=== PATIENT | female | born 1960 | race Caucasian/White ===

== ENCOUNTER 2016-07-15 17:55 | Emergency (ER) | payer BC, OTHER ==
[~2016-07-15] VITALS: Ht 175.3 cm; Wt 76.0 kg
[~2016-07-15 17:55] MED LIST: ERGO50000 PO; MORP30SU PO; OXYC1SOL5 PO; RIVA10 PO; Z.0.COMMODE-3:1; Z.0.WALKERFRONT
[2016-07-15 17:57] VITALS: BP 195/117; PULSE 89; RESP 18; TEMP 98.9; O2SAT 100
[2016-07-15 18:10] VITALS: O2SAT 100
[2016-07-15] MEDS ORDERED: SODIUM CHLOR 0.9% 1000 ML INJ 1,000 ML IV SCH (18:11)
[2016-07-15] MEDS ORDERED: MORPHINE SULFATE 4 MG/ML INJ IV PUSH ONE (18:15)
[2016-07-15] MEDS ORDERED: ONDANSETRON HCL 4 MG/2 ML VIAL IVP ONE (18:15)
[2016-07-15] MEDS ORDERED: SODIUM CHLORIDE 0.9% FLUSH 5 ML FLUSH IVF PRN (18:15)
[2016-07-15] MEDS ORDERED: FAMOTIDINE 20 MG/2 ML VIAL IV PUSH ONE (18:15)
--- NOTE | 2016-07-15 18:23 | PD ---
HPI Chief Complaint: GI Complaint Time Seen by Provider: 18:03 Travel History International Travel<30 days: Yes Contact w/Intl Traveler<30days: [place] Country Traveled to: [place] Traveled to known affect area: No History of Present Illness HPI Is a 55-year-old woman who presents to the emergency department complaining of severe epigastric abdominal pain with nausea and vomiting. She was feeling well until yesterday when she developed a little bit of neck stiffness and neck pain. She had pain when trying to look to the right. Lastly she generally wasn 't feeling well when to bed early. She was awoken from sleep with severe epigastric abdominal pain with nausea and vomiting. Multiple episodes of nausea and vomiting since then. Abdominal pain is also worsened. She's never had previous similar symptoms. No change in her bowel movements. No urinary changes. No history of abdominal surgeries. She was on chronic pain medicines for a while related to reportedly thoracic outlet syndrome. She's not been taking it is much morphine but she takes ibuprofen daily now. She also drinks pretty regularly he was drinking yesterday. No other complaints. History Past Medical History Narrative Medical History of thoracic outlet syndrome Social History Alcohol Use: Yes (1PPD) Tobacco Use: Yes Allergies-Medications (Allergen,Severity, Reaction): Coded Allergies: Sulfa (Unverified Allergy, Unknown, MOTHER'S CAUTION, 07/15/16) Reported Meds & Prescriptions Reported Meds & Active Scripts Active Lortab (Hydrocodone-Acetaminophen) 5-325 Mg Tab 1-2 Tab PO Q6H PRN Zofran Odt (Ondansetron Odt) 4 Mg Tab 4 Mg SL Q8HR PRN Pepcid (Famotidine) 20 Mg Tab 20 Mg PO BID Reported Ibuprofen 600 Mg Tab 600 Mg PO Q6H PRN Morphine ER (Morphine Sulfate) 15 Mg Tab 15 Mg PO EVERY OTHER DAY Review of Systems Except as stated in HPI: all other systems reviewed are Neg Physical Exam Narrative GENERAL: Well-appearing 55-year-old woman, no acute distress. SKIN: Warm and dry. NECK: Trachea midline. No JVD. Supple. CARDIOVASCULAR: Regular rate and rhythm. No murmur appreciated. RESPIRATORY: No accessory muscle use. Clear to auscultation. Breath sounds equal bilaterally. GASTROINTESTINAL: Abdomen is flat and soft. Moderate epigastric tenderness. Mild left upper quadrant tenderness. No right upper quadrant tenderness. No lower abdominal tenderness. MUSCULOSKELETAL: No obvious deformities. No edema. NEUROLOGICAL: Awake and alert. No obvious cranial nerve deficits. Motor grossly within normal limits. Normal speech. PSYCHIATRIC: Appropriate mood and affect; insight and judgment normal. Data Data Last Documented VS Vital Signs Date Time Temp Pulse Resp B/P Pulse Ox O2 Delivery O2 Flow Rate FiO2 07/15/16 21:26 97 16 97 07/15/16 21:06 109/66 Room Air 07/15/16 17:57 98.9 Orders Complete Blood Count With Diff (07/15/16 18:11) Comprehensive Metabolic Panel (07/15/16 18:11) Lipase (07/15/16 18:11) Urinalysis - C+S If Indicated (07/15/16 18:11) Ct Abd/Pel W Iv Contrast(Rout) (07/15/16 18:11) Iv Access Insert/Monitor (07/15/16 18:11) Ecg Monitoring (07/15/16 18:11) Oximetry (07/15/16 18:11) NPO (07/15/16 18:11) Morphine Inj (Morphine Inj) (07/15/16 18:15) Ondansetron Inj (Zofran Inj) (07/15/16 18:15) Sodium Chlor 0.9% 1000 Ml Inj (Ns 1000 M (07/15/16 18:11) Sodium Chloride 0.9% Flush (Ns Flush) (07/15/16 18:15) Famotidine Inj (Pepcid Inj) (07/15/16 18:15) Morphine Inj (Morphine Inj) (07/15/16 19:15) Al-Mag Hy-Si 40-40-4 Mg/Ml Liq (Mag-Al P (07/15/16 19:15) Lidocaine 2% Viscous (Xylocaine 2% Visco (07/15/16 19:15) Prochlorperazine Inj (Compazine Inj) (07/15/16 19:15) Potassium Chloride (Kcl) (07/15/16 20:00) Iohexol 300 Inj (Rad Ct) (Omnipaque 300 (07/15/16 19:56) Labs Laboratory Tests Test 07/15/16 07/15/16 18:05 20:01 White Blood Count 7.3 TH/MM3 Red Blood Count 4.63 MIL/MM3 Hemoglobin 15.5 GM/DL Hematocrit 44.3 % Mean Corpuscular Volume 95.7 FL Mean Corpuscular Hemoglobin 33.4 PG Mean Corpuscular Hemoglobin 34.9 % Concent Red Cell Distribution Width 12.0 % Platelet Count 218 TH/MM3 Mean Platelet Volume 8.6 FL Neutrophils (%) (Auto) 84.7 % Lymphocytes (%) (Auto) 10.9 % Monocytes (%) (Auto) 3.0 % Eosinophils (%) (Auto) 0.1 % Basophils (%) (Auto) 1.3 % Neutrophils # (Auto) 6.2 TH/MM3 Lymphocytes # (Auto) 0.8 TH/MM3 Monocytes # (Auto) 0.2 TH/MM3 Eosinophils # (Auto) 0.0 TH/MM3 Basophils # (Auto) 0.1 TH/MM3 CBC Comment DIFF FINAL Differential Comment Sodium Level 131 MEQ/L Potassium Level 3.4 MEQ/L Chloride Level 92 MEQ/L Carbon Dioxide Level 23.7 MEQ/L Anion Gap 15 MEQ/L Blood Urea Nitrogen 9 MG/DL Creatinine 0.63 MG/DL Estimat Glomerular Filtration 97 ML/MIN Rate Random Glucose 114 MG/DL Calcium Level 9.5 MG/DL Total Bilirubin 0.7 MG/DL Aspartate Amino Transf 49 U/L (AST/SGOT) Alanine Aminotransferase 55 U/L (ALT/SGPT) Alkaline Phosphatase 133 U/L Total Protein 8.5 GM/DL Albumin 4.0 GM/DL Lipase 142 U/L Urine Color STRAW Urine Turbidity CLEAR Urine pH 6.5 Urine Specific [place] 1.025 Urine Protein TRACE mg/dL Urine Glucose (UA) NEG mg/dL Urine Ketones 40 mg/dL Urine Occult Blood SMALL Urine Nitrite NEG Urine Bilirubin NEG Urine Leukocyte Esterase TRACE Urine RBC 0-3 /hpf Urine WBC 0-2 /hpf Urine Squamous Epithelial 0-5 /hpf Cells Microscopic Urinalysis Comment CULT NOT INDICATED MDM Medical Decision Making Medical Screen Exam Complete: Yes Emergency Medical Condition: Yes Differential Diagnosis Pancreatitis, gastritis, gastroenteritis, obstruction, other Narrative Course Medical decision making: INITIAL: 55 year-old woman, appears ill and uncomfortable, nontoxic. Epigastric pain and vomiting. Probably gastritis. She has some epigastric and left upper quadrant tenderness. Pancreatitis, gastroenteritis are reddish also possible. No diarrhea however. No surgeries to suggest obstruction. She is really not tender in the right upper quadrant to suggest hepatobiliary disease. We'll check labs, medications, CT imaging, reassess. Scripts Hydrocodone-Acetaminophen (Lortab)5-325 Mg Tab1-2 Tab PO Q6H PRN (PAIN SCALE 6 TO 10) #7 TAB Ref 0 Prov:Bennie Carpenter MD 07/15/16 Ondansetron Odt (Zofran Odt)4 Mg Tab4 Mg SL Q8HR PRN (Nausea/Vomiting) #14 TAB Ref 0 Prov:Bennie Carpenter MD 07/15/16 Famotidine (Pepcid)20 Mg Tab20 Mg PO BID #7 TAB Ref 0 Prov:Bennie Carpenter MD 07/15/16 Renato Millan MD Jul 15, 2016 18:23
[2016-07-15 18:31] LABS: AUTOMATED NEUTROPHIL # 6.2 TH/MM3 (1.8-7.7); BASOPHIL # 0.1 TH/MM3 (0-0.2); BASOPHIL % 1.3 % (0.0-2.0); EOSINOPHIL % 0.1 % (0.0-4.0); HEMATOCRIT 44.3 % (35.0-46.0); HEMO FLAGS DIFF FINAL; LYMPH % 10.9 % (9.0-44.0); LYMPHOCYTE # 0.8 TH/MM3 (1.0-4.8); MEAN CELL VOLUME 95.7 FL (80.0-100.0); MEAN CORPUSCULAR HEMOGLOBIN 33.4 PG (27.0-34.0); MEAN CORPUSCULAR HGB CONC 34.9 % (32.0-36.0); NEUT % 84.7 % (16.0-70.0); PLATELET COUNT 218 TH/MM3 (150-450); RED BLOOD COUNT 4.63 MIL/MM3 (4.00-5.30); WHITE BLOOD COUNT 7.3 TH/MM3 (4.0-11.0)
[2016-07-15] MEDS ORDERED: MORP1TAB24 PO (18:37)
[2016-07-15] MEDS ORDERED: IBUP-232 PO (18:37)
[2016-07-15 18:51] LABS: CHLORIDE 92 MEQ/L (98-107); POTASSIUM 3.4 MEQ/L (3.5-5.1); SODIUM (NA) 131 MEQ/L (136-145)
[2016-07-15 18:55] LABS: ANION GAP 15 MEQ/L (5-15); BICARBONATE 23.7 MEQ/L (21.0-32.0); BLOOD UREA NITROGEN 9 MG/DL (7-18)
[2016-07-15 18:58] LABS: ALT (GPT) 55 U/L (10-53); AST (GOT) 49 U/L (15-37); GLOMERULAR FILTRATION RATE 97 ML/MIN (>89)
[2016-07-15 18:59] LABS: TOTAL BILIRUBIN ADULT 0.7 MG/DL (0.2-1.0)
[2016-07-15 19:00] VITALS: BP 185/104; PULSE 98; RESP 18; O2SAT 97
[2016-07-15 19:00] LABS: ALKALINE PHOSPHATASE 133 U/L (45-117)
[2016-07-15] MEDS ORDERED: LIDOCAINE VISCOUS 2% SOLN 15 ML UDC PO ONE (19:15)
[2016-07-15] MEDS ORDERED: PROCHLORPERAZINE INJ 10 MG/2 ML VIAL IVS ONE (19:15)
[2016-07-15] MEDS ORDERED: MORPHINE SULFATE 8 MG/ML INJ IV PUSH ONE (19:15)
[2016-07-15] MEDS ORDERED: ALUMINUM/MAGNESIUM/SIMETH 30 ML CUP PO ONE (19:15)
[2016-07-15] MEDS ORDERED: IOHEXOL 300 MG/ML 100 ML BTL (for Rad CT) IV ONE (19:56)
[2016-07-15] MEDS ORDERED: POTASSIUM CHLORIDE 20 MEQ CONTROLLED RELEASE TAB PO ONE (20:00)
[2016-07-15 20:05] VITALS: BP 129/75; PULSE 97; RESP 18; O2SAT 96
[2016-07-15 20:17] LABS: BLOOD, URINE SMALL (NEG); GLUCOSE,URINE NEG (NEG); KETONE, URINE 40 mg/dL (NEG); NITRITE,URINE NEG (NEG); PH, URINE 6.5 (5.0-8.5)
[2016-07-15 20:33] LABS: URINE COLOR STRAW (YELLW/STRAW)
[2016-07-15] MEDS ORDERED: FAMO1TAB37 PO (20:35)
[2016-07-15] MEDS ORDERED: ZOFR4TAB3 SL (20:35)
[2016-07-15] MEDS ORDERED: HYDR-3533 PO (20:35)
--- NOTE | 2016-07-15 20:36 | PD ---
Data Data Last Documented VS Vital Signs Date Time Temp Pulse Resp B/P Pulse Ox O2 Delivery O2 Flow Rate FiO2 07/15/16 21:06 98 18 109/66 97 Room Air 07/15/16 17:57 98.9 Orders Complete Blood Count With Diff (07/15/16 18:11) Comprehensive Metabolic Panel (07/15/16 18:11) Lipase (07/15/16 18:11) Urinalysis - C+S If Indicated (07/15/16 18:11) Ct Abd/Pel W Iv Contrast(Rout) (07/15/16 18:11) Iv Access Insert/Monitor (07/15/16 18:11) Ecg Monitoring (07/15/16 18:11) Oximetry (07/15/16 18:11) NPO (07/15/16 18:11) Morphine Inj (Morphine Inj) (07/15/16 18:15) Ondansetron Inj (Zofran Inj) (07/15/16 18:15) Sodium Chlor 0.9% 1000 Ml Inj (Ns 1000 M (07/15/16 18:11) Sodium Chloride 0.9% Flush (Ns Flush) (07/15/16 18:15) Famotidine Inj (Pepcid Inj) (07/15/16 18:15) Morphine Inj (Morphine Inj) (07/15/16 19:15) Al-Mag Hy-Si 40-40-4 Mg/Ml Liq (Mag-Al P (07/15/16 19:15) Lidocaine 2% Viscous (Xylocaine 2% Visco (07/15/16 19:15) Prochlorperazine Inj (Compazine Inj) (07/15/16 19:15) Potassium Chloride (Kcl) (07/15/16 20:00) Iohexol 300 Inj (Rad Ct) (Omnipaque 300 (07/15/16 19:56) Labs Laboratory Tests Test 07/15/16 07/15/16 18:05 20:01 White Blood Count 7.3 TH/MM3 Red Blood Count 4.63 MIL/MM3 Hemoglobin 15.5 GM/DL Hematocrit 44.3 % Mean Corpuscular Volume 95.7 FL Mean Corpuscular Hemoglobin 33.4 PG Mean Corpuscular Hemoglobin 34.9 % Concent Red Cell Distribution Width 12.0 % Platelet Count 218 TH/MM3 Mean Platelet Volume 8.6 FL Neutrophils (%) (Auto) 84.7 % Lymphocytes (%) (Auto) 10.9 % Monocytes (%) (Auto) 3.0 % Eosinophils (%) (Auto) 0.1 % Basophils (%) (Auto) 1.3 % Neutrophils # (Auto) 6.2 TH/MM3 Lymphocytes # (Auto) 0.8 TH/MM3 Monocytes # (Auto) 0.2 TH/MM3 Eosinophils # (Auto) 0.0 TH/MM3 Basophils # (Auto) 0.1 TH/MM3 CBC Comment DIFF FINAL Differential Comment Sodium Level 131 MEQ/L Potassium Level 3.4 MEQ/L Chloride Level 92 MEQ/L Carbon Dioxide Level 23.7 MEQ/L Anion Gap 15 MEQ/L Blood Urea Nitrogen 9 MG/DL Creatinine 0.63 MG/DL Estimat Glomerular Filtration 97 ML/MIN Rate Random Glucose 114 MG/DL Calcium Level 9.5 MG/DL Total Bilirubin 0.7 MG/DL Aspartate Amino Transf 49 U/L (AST/SGOT) Alanine Aminotransferase 55 U/L (ALT/SGPT) Alkaline Phosphatase 133 U/L Total Protein 8.5 GM/DL Albumin 4.0 GM/DL Lipase 142 U/L Urine Color STRAW Urine Turbidity CLEAR Urine pH 6.5 Urine Specific [place] 1.025 Urine Protein TRACE mg/dL Urine Glucose (UA) NEG mg/dL Urine Ketones 40 mg/dL Urine Occult Blood SMALL Urine Nitrite NEG Urine Bilirubin NEG Urine Leukocyte Esterase TRACE Urine RBC 0-3 /hpf Urine WBC 0-2 /hpf Urine Squamous Epithelial 0-5 /hpf Cells Microscopic Urinalysis Comment CULT NOT INDICATED MDM Medical Record Reviewed: Yes Supervised Visit with HARINI: No Narrative Course CBC & BMP Diagram 07/15/16 18:05 AST 49 ALT 55 Alk phos 133 Total protein 8.5 Lipase normal UA: UTI unlikely Patient asleep at 9:06 PM easily arousable. Please refer to the outgoing provider's documentation. Her workup today is reassuring aside from quite mild elevation of liver enzymes and mild hematuria. The patient has been taking increased ibuprofen dosages lately having decreased opioid management. EtOH last night also noted. Peptic ulcer disease/gastritis is of some concern. Hematuria is of indeterminate chronicity however it was discussed with the patient necessity of follow-up endorsed. Patient verbalized understanding. Lifestyle and diet modification discussed with patient. Minimization of ibuprofen as tolerable d/w patient. Prescriptions as below. Follow-up with [facility] for endoscopy. Follow-up with PMD for hematuria. BP has improved to about 125/80. The patient is resting comfortably and feels better, is alert and in no distress at 909PM. The patients results and examination findings were discussed. The repeat examination is unremarkable and benign. The history, exam , diagnostic testing, and current condition do not suggest any significant pathology to warrant further testing, continued ED treatment, admission, or surgical evaluation at this point. The vital signs have been stable. The patient does not have uncontrollable pain, intractable vomiting, or other significant symptoms. The patient's condition is stable and appropriate for discharge. The patient will pursue further outpatient evaluation with a primary care physician or other designated or consulting physician as indicated in the discharge instructions. The patient expressed understanding and was agreeable with this plan. Diagnosis Primary Impression: Abdominal pain Qualified Code: R10.13 - Epigastric pain Additional Impressions: Elevated liver function tests Hematuria Hypokalemia Referrals: DR GRAF 2 days Follow up for evaluation of blood in urine. Dalton Mohr MD 2 days Additional Instruction: You have a choice when it comes to health care, and we are glad that you chose [facility] Hopefully, we have met your expectations on today's visit. You are welcome to return to [facility] at any time, as we are committed to meeting the health care needs of our community. Med/Other Pt SpecificInfo: Prescription(s) given Scripts Hydrocodone-Acetaminophen (Lortab)5-325 Mg Tab1-2 Tab PO Q6H PRN (PAIN SCALE 6 TO 10) #7 TAB Ref 0 Prov:Bennie Carpenter MD 07/15/16 Ondansetron Odt (Zofran Odt)4 Mg Tab4 Mg SL Q8HR PRN (Nausea/Vomiting) #14 TAB Ref 0 Prov:Bennie Carpenter MD 07/15/16 Famotidine (Pepcid)20 Mg Tab20 Mg PO BID #7 TAB Ref 0 Prov:Bennie Carpenter MD 07/15/16 Disposition: 01 DISCHARGE HOME Condition: Stable Bennie Carpenter MD Jul 15, 2016 20:36
[2016-07-15 20:42] LABS: COMMENT (UR) CULT NOT INDICATED; CULTURE IF INDICATED CULT NOT INDICATED; RBC, URINE 0-3 /hpf (0-3); SQUAMOUS EPITHELIAL CELL URINE 0-5 /hpf (0-5); WBC, URINE 0-2 /hpf (0-5)
--- NOTE | 2016-07-15 20:44 | RADHPO ---
EXAM DATE/TIME: 07/15/2016 19:51 [place] COMPARISON: No previous studies available for comparison. INDICATIONS : Bilateral epigastric pain. Nausea. Vomiting. IV CONTRAST: 100 cc Omnipaque 300 (iohexol) IV ORAL CONTRAST: No oral contrast ingested. RADIATION DOSE: 15.41 CTDIvol (mGy) MEDICAL HISTORY : Hypertension. Seizures. SURGICAL HISTORY : None. ENCOUNTER: Initial ACUITY: 1 day PAIN SCALE: 7/10 LOCATION: Bilateral upper quadrant TECHNIQUE: Volumetric scanning of the abdomen and pelvis was performed. Using automated exposure control and ad justment of the mA and/or kV according to patient size, radiation dose was kept as low as reasonably achievable to obtain optimal diagnostic quality images. FINDINGS: Lung bases are clear. The liver, spleen, and pancreas are unremarkable. Radiopaque material is seen in the stomach. Adrenals and kidneys are unremarkable. The region of the cecum and terminal ileum a ppear normal. There is a normal appearing appendix. In the pelvis, diverticuli are present in the sigmoid colon without diverticulitis. The bladder is u nremarkable. There is no ascites or adenopathy. Abdominal wall is intact. Total hip is seen on the left. CONCLUSION: Negative for an acute process. Hira Grover MD FACR on July 15, 2016 at 20:31 Board Certified Radiologist. This report was verified electronically.
[2016-07-15 21:06] VITALS: BP 109/66; PULSE 98; RESP 18; O2SAT 97
== END 2016-07-15 21:26 | disposition home or self-care (01) ==
LOC: PHED 17:55
DX: R10.13 Epigastric pain (principal); R79.89 Other specified abnormal findings of blood chemistry; R31.9 Hematuria, unspecified; G54.0 Brachial plexus disorders; E87.6 Hypokalemia; Z72.0 Tobacco use
CPT/HCPCS: 74177; 80053; 81001; 83690; 85025; 96361; 96374; 96375; 96376; 99284; J0780; J2270; J2405; J7030; Q9967

== ENCOUNTER → 2017-05-19 | Day surgery (SDC) | payer OTHER ==
--- NOTE | 2017-05-18 15:59 | TH ---
cc: PEDRO HIGGINBOTHAM M.D. DATE: 05/19/2017 DATE OF : 1960 PROCEDURE TO BE PERFORMED Revision mastopexy and revision lipo abdominoplasty with slim lipo to torso with fat injections. HISTORY OF PRESENT ILLNESS The patient who underwent a lipo abdominoplasty, mastopexy ___ 10/12/2016 and had developed some areas of laxity and lipodystrophy of the torso. The patient wished to go a little smaller on her breasts. We are planning to do the exchange of the current implants for a style 110 volume ___ from 300. PAST MEDICAL HISTORY Past medical history is otherwise unremarkable. She did have eye surgery in 1969, hip replacements in 2014 ___ release. MEDICATION As needed Ibuprofen. ALLERGIES SULFA. SOCIAL HISTORY The patient is an ex-smoker. REVIEW OF SYSTEMS Otherwise unremarkable. PHYSICAL EXAMINATION CONSTITUTIONAL: General appearance. The patient is a well-developed female in no acute distress. Body habitus is within normal limits. There appear to be no deformities. Appears to have attention to grooming. HEENT: Eyes Conjunctivae and lids are within normal anatomical limits. The pupils are reactive to light and accommodation, size, and symmetry. There is no evidence of exudate, hemorrhage, or vessel change. Ears, mouth, nose, and throat The external inspection of the ears and nose fails to demonstrate any pathology, scars, lesions, or masses. Nasal mucosa, septum, and turbinates appear to be well hydrated as well as the lips and gums. No evidence of masses in the hypopharynx or submental area. RESPIRATORY: The patient shows no evidence of intercostal refractions. Otherwise, lungs are clear to auscultation without any abnormal sounds or rubs. CARDIOVASCULAR: The patient has a normal heart rate and rhythm. There is no evidence of noticed carotid bruits. Femoral pulses and pedal pulses in extremities are also within normal limits. GASTROINTESTINAL/ABDOMEN: Soft with no evidence of masses or tenderness. Unable to palpate the liver or spleen. No evidence of hernia. MUSCULOSKELETAL: Appears to be reasonable range of motion on the head, neck, spine, ribs, pelvis, right upper extremity, left upper extremity, right lower extremity, and left lower extremity. The muscle strength and tone appears to be equal and within accepted limits. SKIN: There is no rashes, lesions, or ulcers on the trunk, back, and extremities. NEUROLOGICAL: Examination is grossly normal. PSYCHIATRIC: The patient appears to have good orientation of time, place, and person. Does not appear to have any mood effects of depression, anxiety, or agitation. Does have some areas of laxity, lipodystrophy and ptosis. PLAN As above. MD SIMONE Suresh/FLORIN /2:24 PM /4:03 PM
[~2017-05-19] MED LIST changes: +ACETAMINOPHEN 1000 MG/100 ML 100 ML IV ONE; +ACETAMINOPHEN/HYDROcodone 325 MG/5 MG TAB ONE; +BACITRACIN IM FOR SOLN 50,000 UNIT VIAL ONE; +BUPIVACAINE/EPINEPHRINE 0.25% 50 ML VIAL ONE; -ERGO50000 PO; +FAMO1TAB37 PO; +GENTAMICIN SULFATE 80 MG/2 ML VIAL ONE; +HYDR-3533 PO; +IBUP-232 PO; +LACTATED RINGER'S 1000 ML INJ 1,000 ML ONE; +LIDOCAINE 1%/EPINEPHrine 1:100,000 SOLN 50 ML VIAL ONE; +MEPERIDINE HCL 25 MG/ML VIAL ONE; +MEPERIDINE HCL 50 MG/ML VIAL ONE; +MIDAZOLAM HCL 2 MG/2 ML VIAL ONE; +MORP1TAB24 PO; -MORP30SU PO; +MORPHINE SULFATE 4 MG/ML INJ ONE; +ONDANSETRON HCL 4 MG/2 ML VIAL IV PUSH ONE; -OXYC1SOL5 PO; +PROPOFOL 500 MG/50 ML BTL IV ONE; -RIVA10 PO; +SODIUM CHLORIDE 0.9% 20 ML VIAL ONE; -Z.0.COMMODE-3:1; -Z.0.WALKERFRONT; +ZOFR4TAB3 SL; +ceFAZolin INJ 1,000 MG VIAL ONE
--- NOTE | 2017-05-19 14:39 | TN ---
cc: LAI DANIELS M.D. DATE OF SURGERY: 05/19/2017 PREOPERATIVE DIAGNOSIS Status post augmentation mastopexy with unhappiness in volume and further ptosis as well as status post abdominoplasty with residual lipodystrophy, areas of lipo contouring ___. PROCEDURE Removal and replacement of implants with mastopexy revision as well as liposuction contouring the anterior upper lower abdomen, flanks with micro fat injections on the anterior right thigh as well as the groin areas bilateral. SURGEON Lai Daniels MD, FACS ANESTHESIA LMA general. ESTIMATED BLOOD LOSS Minimal. COMPLICATIONS None. PROCEDURE She was properly consented, marked, properly anesthetized. The skin was sterilized with Betadine solution, sterile draping was applied. Local anesthetic was infiltrated into the base of the breast. Utilizing the previous center vertical inframammary incision I proceeded and performed the incision utilizing 15 blade. I proceeded and approached the capsule. This was properly opened, the implant was removed without any difficulties. I proceeded and performed at this point irrigation with triple antibiotic solution and lateral and inferior capsulorrhaphies were done with multiple running locking 0-Silk. I proceeded and performed at this point superomedial capsulotomies, after isolating the NAC from the beginning and the nipple-areolar complex, I proceeded and performed in the skin, I proceeded and inserted the new implant. This was left in the same sub-glandular plane and the implant data is as follows: Leti Mirandaan Natrelle style 110, volume 210. The serial number of the right breast implant device is [id number] and on the left side is a Natrelle style 110, 210 ccs, serial number [id number], both of them again were in the texture and placed in the same sub-glandular plane. After that the wounds were closed in multiple layers and 2-0 Monocryl suture and proceeded and the patient was sat up and tailor tack technique was utilized in order to approach and reduce the envelope of that new volume. This was done utilizing surgical kennedy. The skin was marked, the kennedy removed, the skin was de-epithelialized and the wounds were closed utilizing 2-0 Monocryl suture ___ and PTFE was utilized for the nipple-areolar complex which was reinforced with 2-0 Quill. Prineo Dermabond was utilized for the skin. Good viability of tissue was noted of the skin as well as the nipple-areolar complex at this point. We proceeded and brought attention to the torso where utilizing puncture wounds I proceeded and tumesced approximately 682 ccs of this diluted lidocaine in which in a 1000 ccs 36 1% lidocaine plain was mixed with epinephrine 1:1000. We evacuate 700 ccs and injected 155 ccs of fat in the left and right groin area as well as the right anterior lateral thigh. All the puncture wounds that were done utilizing 11-blade were closed utilizing 5-0 Chromic suture and Steri-Strips applied, and absorbent dressings applied after that, abdominal binder took place. Overall, the patient tolerated the procedure well. Before finishing I performed umbilicoplasty as the initial umbilical had closed in a significant contraction. After release we were able to ___ that out and layer suture utilizing 3-0 Monocryl suture and 5-0 fast-absorbing gut. Overall, the patient tolerated the procedure well and was awakened, extubated in the operating room, transferred back to the postanesthesia care unit in stable condition. No complications were appreciated. The patient tolerated the procedure fairly well. MD SIMONE Suresh/FLORIN /1:43 PM /2:12 PM
== END | disposition home or self-care (01) ==
LOC: ESDC 09:06
PROVIDERS: ATTEND Plastic Surgery
DX: Z41.1 Encounter for cosmetic surgery (principal)
CPT/HCPCS: 00300; 00400; 00402; 11954; 15877; 19316; 19325; 19328; C1789; J0131; J0690; J1580; J2175; J2250; J2270; J2405; J3010; J7120

== ENCOUNTER → 2017-11-03 | Day surgery (SDC) | payer OTHER ==
[~2017-11-03] MED LIST changes: +ARTIFICIAL TEARS OPTH OINT 3.5 APPLIC/3.5 GM TUBO ONE; -BACITRACIN IM FOR SOLN 50,000 UNIT VIAL ONE; +BALANCED SALT SOLN OPHT IRRIG 15 ML BTL ONE; -BUPIVACAINE/EPINEPHRINE 0.25% 50 ML VIAL ONE; -GENTAMICIN SULFATE 80 MG/2 ML VIAL ONE; +KETOROLAC TROMETHAMINE 30 MG/ML (IVP) VIAL IV PUSH ONE; -LIDOCAINE 1%/EPINEPHrine 1:100,000 SOLN 50 ML VIAL ONE; +LIDOCAINE 2%/EPINEPHrine PF 1:200,000 20ML SDV ONE; -MEPERIDINE HCL 25 MG/ML VIAL ONE; -MEPERIDINE HCL 50 MG/ML VIAL ONE; -MORPHINE SULFATE 4 MG/ML INJ ONE; +PROPOFOL 200 MG/20 ML AMP IV ONE; -PROPOFOL 500 MG/50 ML BTL IV ONE; -SODIUM CHLORIDE 0.9% 20 ML VIAL ONE
--- NOTE | 2017-11-03 08:45 | TN ---
cc: Lai Dnaiels MD DATE OF SURGERY: 11/03/2017 PREOPERATIVE DIAGNOSIS: Right upper blepharochalasia and brow ptosis, left canthal laxity, lower canthal laxity and skeletonization of the upper eyelid. POSTOPERATIVE DIAGNOSIS: Right upper blepharochalasia and brow ptosis, left canthal laxity, lower canthal laxity and skeletonization of the upper eyelid. PROCEDURES PERFORMED: 1. Right upper blepharoplasty with modified brow lift. 2. Left lower lid canthopexy. 3. Fat injections to the concavity of the upper eyelid. SURGEON: Lai Daniels MD. ANESTHESIA: LMA, general. A total of 4 mL of 1% lidocaine with epinephrine. ESTIMATED BLOOD LOSS: Minimal. PROCEDURE: The patient was properly consented, marked and anesthetized. The skin sterilized with Microcyn and sterile draping applied. The markings were done in the upright position in the holding area. Utilizing a #15 blade, the excess skin was removed. Meticulous hemostasis achieved with electrocautery. Trimmed the orbicularis oculi muscle through which the dissection was done underneath in the soft area supraperiosteal level 1 or 2 cm above the eyebrow. This was properly thereafter anchored with a 5-0 clear nylon to anchor and elevate the brow with multiple single 5-0 clear nylon sutures. Once that was achieved, I closed the orbicularis oculi muscle with 6-0 Monocryl suture and the skin was closed with fast absorbing 5-0 gut. Attention was directed to the left lower eyelid. Through a lateral incision, I dissected the inner aspect and expose the inner aspect of the superomedial orbital periosteum through which a 5-0 clear nylon was passed down to the canthal and around the canthal ligament and brought up through the same periosteal area and elevated the lower eyelid. Finally, liposuction was harvested from the left inner thigh, appropriately washed and decanted and put into 1 cc tuberculin syringe through which droplets were appropriately applied through a cross technique to fill up the concavity of the upper eyelid. A total of 2 mL were applied. All the puncture wounds were closed. Antibiotic ointment was applied to the incisions. The patient was awakened and extubated in the operating room and transferred back to the postanesthesia care unit in stable condition. No complications were appreciated. The patient tolerated the procedure fairly well. MD SIMONE Suresh/KAMAR , 08:18 AM , 08:44 AM
== END | disposition home or self-care (01) ==
LOC: ESDC 06:14
PROVIDERS: ATTEND Plastic Surgery
DX: Z41.1 Encounter for cosmetic surgery (principal)
CPT/HCPCS: 00103; 00300; 11951; 15822; 15824; 21282; J0131; J0690; J1885; J2250; J2405; J3010; J7120